=== PATIENT | male | born 1960 | race Caucasian/White ===

== ENCOUNTER 2017-04-05 11:54 | Emergency (ER) | payer OTHER ==
--- NOTE | 2017-04-05 13:06 | EDPHY ---
H & P Stated Complaint: Floater in R eye since ; pt very anxious Time Seen by Provider: 04/05/17 12:41 HPI/ROS: CHIEF COMPLAINT: Eye floater, anxiety HISTORY OF PRESENT ILLNESS: The patient is a 56 y/o male complaining of a right eye floater he first noticed on , 4 days ago. The floater is located to the side of his right field of vision and is more noticeable when turning his eyes to the right. His symptoms are worse at night and seem to improve during the day. His symptoms make him feel anxious. He also feels like his eyelids are swollen, but this sensation improves while in an air conditioned room. He denies other changes to his vision, headache, weakness, numbness, preceding trauma, or any other complaints. - Personal History Current Tetanus Diphtheria and Acellular Pertussis (TDAP): Yes Tetanus Vaccine Date: with in 10 yrs - Medical/Surgical History PMH: Anxiety Hx Diabetes: No Other PMH: anxiety. herniated discs. PTSD - Social History Smoking Status: Never smoked Additional Social History: Nonsmoker - Physical Exam Exam: General Appearance: Alert, anxious Visual Acuity: 20/20 Lids: no proptosis, no periorbital erythema or swelling, no vesicles Conjunctivae: No erythema, no discharge Pupils:equal round and reactive to light EOMI Cornea: Normal appearance Anterior chamber:Clear, no hyphema Constitutional: Initial Vital Signs Temperature (C) 36.8 C 04/05/17 12:02 Heart Rate 104 H 04/05/17 12:02 Respiratory Rate 20 04/05/17 12:02 Blood Pressure 135/90 H 04/05/17 12:02 O2 Sat (%) 97 04/05/17 12:02 O2 Delivery Mode Room Air Allergies/Adverse Reactions: albuterol Allergy (Intermediate, Verified 04/05/17 12:06) tachycardia oxycodone [Oxycodone] Allergy (Intermediate, Verified 04/05/17 12:06) all opiates Allergy (Intermediate, Uncoded 03/14/12 17:33) tachycardia Home Medications: Medication Instructions Recorded Amitriptyline HCl [Elavil 10 mg 04/05/17 (*)] Mirtazapine [Remeron Soltab 30 mg 30 mg PO DAILY 04/05/17 (*)] Medical Decision Making ED Course/Re-evaluation: This is a 56 y/o male presents with a 4-day history of visual floaters in his right eye. Dr. Medina, severity of illness coordinator, paged. I did not speak with Dr. Medina directly as she was unavailable. However, according to her office staff , she is available to see the pt at 1330 and requests that he go to the office. I've discussed this with the patient and he agrees to go directly to her office. Return precautions given. Departure - Departure Disposition: Home, Routine, Self-Care Clinical Impression: Visual floaters Condition: Good Instructions: Visual Floaters (ED) Additional Instructions: Go directly to Dr. Medina's office. They are expecting to see you by 1:30 today. Return to the ED for any worsening of condition. Referrals: Humberto Schafer MD [Primary Care Provider] - As per Instructions Denise Medina MD [Non Staff Provider (MD)] - As per Instructions Report Scribed for: Dennise Ramirez Report Scribed by: Denise Foss Date of Report: 04/05/17 Time of Report: 13:02 Physician Review and Approval Statement: 04/05/17 13:02 Portions of this note were transcribed by a medical coordinator pesticide use. I personally performed a history, physical exam, medical decision making, and confirmed accuracy of information the transcribed note.
[2017-04-05 13:23] VITALS: BP 137/87; PULSE 83; RESP 16; TEMP 98.1; O2SAT 95
== END 2017-04-05 13:23 | disposition home or self-care (01) ==
DX: H43.391 Other vitreous opacities, right eye (principal)